=== PATIENT | male | born 1995 | race African-American/Black ===

== ENCOUNTER 2018-07-19 19:16 | Observation (INO) | payer OTHER ==
[2018-07-19] MEDS ORDERED: ALBUTEROL SO4 2.5/IPRATROPIUM 0.5 INH SOL 3 ML VIAL.NEB. NEB ONE ×3 (19:30→20:16)
[2018-07-19] MEDS ORDERED: MAGNESIUM SULF 50% (8.12 MEQ/2 ML-1 GM VIAL) ONE (19:36)
[2018-07-19] MEDS ORDERED: DEXAMETHASONE SOD PHOSPHATE 10 MG/1 ML VIAL ONE (19:36)
[2018-07-19] MEDS ORDERED: SODIUM CHLORIDE 0.9% 500 ML INFUS.BAG IV ONE (19:51)
[2018-07-19 20:03] LABS: BASO % 0.6 % (0-2.0); EOS % 0.5 % (0-4.5); HEMATOCRIT 40.6 % (35.4-49); HEMOGLOBIN 12.5 GM/dL (11.7-16.9); LYMPH % 6.7 % (8-40); MCH 23.8 pg (25.7-33.7); MCHC 30.8 g/dl (32.0-35.9); MEAN CELL VOLUME 77.3 fl (80-96); MEAN PLT VOLUME 8.8 fl (7.5-11.1); MONO % 5.2 % (3.8-10.2); PLATELET COUNT 277 K/MM3 (134-434); RBC 5.26 M/mm3 (4.00-5.60)
--- NOTE | 2018-07-19 20:14 | PDOC ---
History of Present Illness <Vannessa Foster - Last Filed: 07/19/18 22:14> - General History Source: Patient Exam Limitations: No Limitations - History of Present Illness Initial Comments: 07/19/18 22:17 23 yo M with a hx of asthma (intubated 2 times in the past, most recent 5 years ago) presents to the emergency department BIB with SOB. Per EMS, they gave him 2 grams of magnesium sulfate, 10mg of decadron, and 2x duonebs. The patient had decreased The patient is a 23 year old male with a significant past medical history of asthma (intubated 2 times 5 years ago) who presents to the emergency department via EMS from home with an asthma exacerbation prior to arrival . as per the patient mother at bedside, the patient came home from taking an exam when he went to take a nap secondary to being tired. The patient's mother states that he kept requesting blankets due to being really cold. subsequently after sleeping for a while the patient began to experience an onset of shortness of breath at around 2 pm as well as a headache. The patient reports associated episode of vomiting . As per the patient's mother , the patient received 2 duonebs enroute and began to feel slightly better. It is noted that the patient took his albuterol this morning and had last used his prednisone about 1 month ago . he denies any fever, nausea, diarrhea, constipation, chest pain, or any other complaints. <Dean Santiago - Last Filed: 07/19/18 22:27> - General Chief Complaint: Asthma Stated Complaint: ASTHMA Time Seen by Provider: 07/19/18 19:40 Past History <Vannessa Foster - Last Filed: 07/19/18 22:14> - Suicide/Smoking/Psychosocial Hx Smoking History: Never smoked Hx Alcohol Use: No Drug/Substance Use Hx: No <Dean Santiago - Last Filed: 07/19/18 22:27> - Past Medical History Allergies/Adverse Reactions: Allergies Allergy/AdvReac Type Severity Reaction Status Date / Time shellfish derived Allergy Verified 07/19/18 20:13 *Physical Exam - Vital Signs Last Vital Signs Temp Pulse Resp BP Pulse Ox 98.0 F 112 H 24 H 118/79 92 L 07/19/18 19:25 07/19/18 19:25 07/19/18 19:25 07/19/18 19:25 07/19/18 19:25 <Vannessa Foster - Last Filed: 07/19/18 22:14> - Vital Signs Last Vital Signs Temp Pulse Resp BP Pulse Ox 98.0 F 112 H 24 H 118/79 92 L 07/19/18 19:25 07/19/18 19:25 07/19/18 19:25 07/19/18 19:25 07/19/18 19:25 <Dean Santiago - Last Filed: 07/19/18 22:27> ED Treatment Course - LABORATORY CBC & Chemistry Diagram: 07/19/18 19:56 07/19/18 19:56 - ADDITIONAL ORDERS Additional order review: Laboratory Results 07/19/18 19:56 Sodium 136 Potassium 4.8 Chloride 103 Carbon Dioxide 25 Anion Gap 9 BUN 7 Creatinine 0.7 Est GFR (CKD-EPI)AfAm 155.25 Est GFR (CKD-EPI)NonAf 133.96 Random Glucose 107 H Calcium 9.4 Total Bilirubin 0.9 AST 50 H ALT 30 Alkaline Phosphatase 162 H Total Protein 7.9 Albumin 3.8 07/19/18 19:56 RBC 5.26 MCV 77.3 L MCHC 30.8 L RDW 14.0 MPV 8.8 Neutrophils % 87.0 H Lymphocytes % 6.7 L Monocytes % 5.2 Eosinophils % 0.5 Basophils % 0.6 - RADIOLOGY Radiology Studies Ordered: Category Date Time Status CHEST PA & LAT [RAD] Stat Radiology 07/19/18 19:50 Taken - Medications Given in the ED: ED Medications Discontinued Medications Generic Name Dose Route Start Last Admin Trade Name Marjorie PRN Reason Stop Dose Admin Acetaminophen 1,000 mg 07/19/18 20:15 07/19/18 21:05 Ofirmev Injection - IVPB 07/19/18 20:16 1,000 mg ONCE ONE Administration Albuterol/Ipratropium 1 amp 07/19/18 20:16 07/19/18 19:45 Duoneb - NEB 07/19/18 20:17 1 amp ONCE ONE Administration Ceftriaxone Sodium 1,000 mg/ 50 mls @ 100 mls/hr 07/19/18 20:51 07/19/18 21: 40 Dextrose IVPB 07/19/18 21:20 100 mls/hr ONCE ONE Administration Azithromycin 500 mg/ Dextrose 250 mls @ 250 mls/hr 07/19/18 20:52 07/19/18 22 :11 IVPB 07/19/18 21:51 250 mls/hr ONCE ONE Administration Sodium Chloride 1,000 ml 07/19/18 19:51 07/19/18 20:10 Normal Saline - IV 07/19/18 19:52 1,000 ml ONCE ONE Administration <Vannessa Foster - Last Filed: 07/19/18 22:14> - LABORATORY CBC & Chemistry Diagram: 07/19/18 19:56 07/19/18 19:56 - ADDITIONAL ORDERS Additional order review: 07/19/18 19:56 RBC 5.26 MCV 77.3 L MCHC 30.8 L RDW 14.0 MPV 8.8 Neutrophils % 87.0 H Lymphocytes % 6.7 L Monocytes % 5.2 Eosinophils % 0.5 Basophils % 0.6 <Dean Santiago - Last Filed: 07/19/18 22:27> *DC/Admit/Observation/Transfer - Discharge Dispostion Decision to Admit order: Yes <Vannessa Foster - Last Filed: 07/19/18 22:14> <Dean Santiago - Last Filed: 07/19/18 22:27> Diagnosis at time of Disposition: Asthma exacerbation - Discharge Dispostion Condition at time of disposition: Guarded
[2018-07-19] MEDS ORDERED: ACETAMINOPHEN 1000 MG/100 ML VIAL (NON FORMULARY) IVPB ONE (20:15)
[2018-07-19] MEDS ORDERED: ACETAMINOPHEN INJECTION 100 ML IVPB ONE (20:17)
[2018-07-19 20:32] LABS: ALBUMIN 3.8 g/dl (3.4-5.0); BILIRUBIN,TOTAL 0.9 mg/dL (0.2-1); CALCIUM 9.4 mg/dL (8.5-10.1); CREATININE 0.7 mg/dL (0.55-1.3); POTASSIUM 4.8 mmol/L (3.5-5.1); TOT PROT 7.9 g/dl (6.4-8.2)
[2018-07-19] MEDS ORDERED: CEFTRIAXONE 1,000 MG in DEXTROSE 5%-WATER - 50 ML IVPB ONE (20:51)
[2018-07-19] MEDS ORDERED: AZITHROMYCIN IVPB 500 MG in DEXTROSE 5%-WATER - 250 ML IVPB ONE (20:52)
[2018-07-19 21:14] LABS: PLATELET ESTIMATE ADEQUATE
[2018-07-19] MEDS ORDERED: AZITHROMYCIN IVPB 500 MG/250 ML BAG IVPB ONE (21:21)
[2018-07-19] MEDS ORDERED: CEFTRIAXONE 1 GM/50 ML BAG ONE (21:21)
--- NOTE | 2018-07-19 22:13 | PDOC ---
Documentation entered by Rosalia Wallace SCRIBE, acting as scribe for Vannessa Foster MD. Vannessa Foster MD: This documentation has been prepared by the opalibe, Rosalia Wallace SCRIBE, under my direction and personally reviewed by me in its entirety. I confirm that the documentation accurately reflects all work, treatment, procedures, and medical decision making performed by me. Attending Attestation - Resident Resident Name: Dean Santiago - ED Attending Attestation I have performed the following: I have examined & evaluated the patient, The case was reviewed & discussed with the resident, I agree w/resident's findings & plan - HPI HPI: 07/19/18 21:45 The patient is a 23 year old male with a significant past medical history of asthma (intubated 2 times 5 years ago) who presents to the emergency department via EMS from home with an asthma exacerbation prior to arrival . as per the patient mother at bedside, the patient came home from taking an exam when he went to take a nap secondary to being tired. The patient's mother states that he kept requesting blankets due to being really cold. subsequently after sleeping for a while the patient began to experience an onset of shortness of breath at around 2 pm as well as a headache. The patient reports associated episode of vomiting . As per the patient's mother , the patient received 2 duonebs enroute and began to feel slightly better. It is noted that the patient took his albuterol this morning and had last used his prednisone about 1 month ago . he denies any fever, nausea, diarrhea, constipation, chest pain, or any other complaints. - Physicial Exam PE: 07/19/18 21:45 GENERAL: (+)morbid obese. Awake, alert, and fully oriented, in no acute distress HEAD: No signs of trauma EYES: PERRLA, EOMI, sclera anicteric, conjunctiva clear ENT: Auricles normal inspection, hearing grossly normal, nares patent, oropharynx clear without exudates. Moist mucosa NECK: Normal ROM, supple, no lymphadenopathy, JVD, or masses LUNGS: (+)lungs tight breath sounds bilaterally, decreased air movements, patchy small expiratory wheezing. No crackles HEART: Regular rate and rhythm, normal S1 and S2, no murmurs, rubs or gallops ABDOMEN: Soft, nontender, normoactive bowel sounds. No guarding, no rebound. No masses EXTREMITIES: Normal range of motion, no edema. No clubbing or cyanosis. No cords, erythema, or tenderness NEUROLOGICAL: Cranial nerves II through XII grossly intact. Normal speech, normal gait SKIN: Warm to touch, Dry, normal turgor, no rashes or lesions noted. - Medical Decision Making 07/19/18 22:13 Pt continues to have hypoxemia on pulsox at rest and he has tight breath sounds. 07/19/18 22:13 Pt will be admitted for eval.
--- NOTE | 2018-07-19 22:13 | PN ---
Teaching Attending Note Name of Resident: Megan Nguyen ATTENDING PHYSICIAN STATEMENT I saw and evaluated the patient. I reviewed the resident's note and discussed the case with the resident. I agree with the resident's findings and plan as documented. SUBJECTIVE: Patient is a 23 year old man with a PMH of asthma (intubated 2 times 5 years ago ) and morbid obesity who presents to the ER via EMS from home with an asthma exacerbation. Patient says he woke up this morning with a runny nose. Denies smoking, vaping or use of any illicit drugs. As per the patient's mother at bedside, the patient came home from taking an exam when he went to take a nap secondary to being tired. The patient's mother states that he kept requesting for blankets due to being really cold. Subsequently after sleeping for a while the patient began to experience an onset of shortness of breath at around 2 pm as well as a headache. The patient reports associated episode of vomiting. The patient received decadron and 2 duoneb treatments enroute and began to feel slightly better. He got MgSO4 in the ER as well as azithromycin and rocephin. It is noted that the patient took his albuterol this morning and had last used his prednisone about 1 month ago. He denies any fever, nausea, diarrhea, constipation, chest pain, or any other complaints. He does not follow with any Senior Construction Manager. OBJECTIVE: Alert and morbidly obese Vital Signs Period Temp Pulse Resp BP Sys/Bean Pulse Ox Last 24 Hr 98.0 F 112 24 118/79 92 HEENT: No Jaundice, eye redness or discharge, PERRLA, EOMI. Normocephalic, atraumatic. External ears are normal and hearing is grossly intact. No nasal discharge. Neck: Supple, nontender. No palpable adenopathy or thyromegaly. No JVD Chest: Good effort. Prolonged expiration, and end expiratory wheezing. Heart: Regular. No S3, rub or murmur Abdomen: Not distended, soft, nontender and no HSM. No rebound or guarding. Normal bowel sounds. Ext: Peripheral pulses intact. No leg edema. Skin: Warm and dry. No petechiae, rash or ecchymosis. Neuro: Alert. Oriented x3. CN 2-12 grossly intact. Sensation grossly intact in all four extremities and DTR are symmetric. Psych: Appropriate mood and affect. Good insight. Abnormal Lab Results 07/19/18 07/19/18 19:56 19:56 WBC 20.0 H MCV 77.3 L MCH 23.8 L MCHC 30.8 L Absolute Neuts (auto) 17.4 H Neutrophils % 87.0 H Neutrophils % (Manual) 87.0 H Lymphocytes % 6.7 L Lymphocytes % (Manual) 3.0 L Random Glucose 107 H AST 50 H Alkaline Phosphatase 162 H ASSESSMENT AND PLAN: 1. Acute asthma exacerbation - No obvious precipitating factor. No acute abnormality on CXR. Flu swab was negative. Will continue duoned PRN, solumedrol 40 mg q 8 hours, rocephin and azithromycin. Will set him up with Pulmonary for out patient asthma care. Will get RUQ sonogram to investigate elevated LFTs and also get HbA1c. The role of his weight in the disease process discussed. 2. Morbid Obesity Counseled on the risks associated with morbid obesity. Will provide patient all the necessary assistance, counseling and positive reinforcement to facilitate weight loss. Consult wheel and axle inspector. 3. DVT prophylaxis - Lovenox 40 mg SQ q 12 hours. 4. Advance directives - Full code
[2018-07-19] MEDS ORDERED: ALBUTEROL SO4 0.083% IH SOL 2.5 MG/3 ML VIAL.NEB. NEB PRN (23:08)
--- NOTE | 2018-07-19 23:20 | HP ---
CHIEF COMPLAINT: asthma exacerbation PCP: Dr. Parrish HISTORY OF PRESENT ILLNESS: 23 y/o M with PMH asthma (intubated 2x in past; most recently 5 yrs ago), morbid obesity who presents to the ED c/o chest tightness that started this afternoon. As per pt, he had just taken a test for his GED today. After it ended in the early afternoon, he went to sleep at his home and woke up with chills. Requested more blankets from his mother. Soon after, he developed chest tightness, SOB. Tried to take two puffs of albuterol without relief. Due to his sx, his mother called an ambulance and he was subsequently brought to the ED. Received decadron, nebs en route. During this time, he also endorsed nasal congestion, but without cough or sputum production. Denies recent illnesses, sick contacts, TALAVERA, fever, chest pain or pressure or changes in urinary or bowel function. Last exacerbation was 1 month ago. He was tx at [facility] ER and d/c on prednisone taper. Peak flow baseline ranges between 500-600 per patient. Triggers include heat and dust. States his exacerbation may have been 2/2 to weather change, or possible 2/2 stress from GED. ER course was notable for: (1) Mg sulfate (2) cef, zithro (3) Recent Travel: denies PAST MEDICAL HISTORY: as above PAST SURGICAL HISTORY: denies Social History: student Smoking: denies Alcohol: denies Drugs: denies Family History: father- asthma, HTN, DM Allergies shellfish derived Allergy (Verified 07/19/18 20:13) - ANGIOEDEMA HOME MEDICATIONS: ventolin PRN pt does not take any other meds REVIEW OF SYSTEMS CONSTITUTIONAL: Absent: fever, chills, diaphoresis, generalized weakness, malaise, loss of appetite, weight change HEENT: Absent: rhinorrhea, nasal congestion, throat pain, throat swelling, difficulty swallowing, mouth swelling, ear pain, eye pain, visual changes CARDIOVASCULAR: Absent: chest pain, syncope, palpitations, irregular heart rate, lightheadedness , peripheral edema RESPIRATORY: +SOB, nasal congestion Absent: cough, shortness of breath, dyspnea with exertion, orthopnea, wheezing, stridor, hemoptysis GASTROINTESTINAL: Absent: abdominal pain, abdominal distension, nausea, vomiting, diarrhea, constipation, melena, hematochezia GENITOURINARY: Absent: dysuria, frequency, urgency, hesitancy, hematuria, flank pain, genital pain MUSCULOSKELETAL: Absent: myalgia, arthralgia, joint swelling, back pain, neck pain SKIN: Absent: rash, itching, pallor HEMATOLOGIC/IMMUNOLOGIC: Absent: easy bleeding, easy bruising, lymphadenopathy, frequent infections ENDOCRINE: Absent: unexplained weight gain, unexplained weight loss, heat intolerance, cold intolerance NEUROLOGIC: Absent: headache, focal weakness or paresthesias, dizziness, unsteady gait, seizure, mental status changes, bladder or bowel incontinence PSYCHIATRIC: Absent: anxiety, depression, suicidal or homicidal ideation, hallucinations. PHYSICAL EXAMINATION Vital Signs - 24 hr 07/19/18 19:25 Temperature 98.0 F Pulse Rate 112 H Respiratory 24 H Rate Blood Pressure 118/79 O2 Sat by Pulse 92 L Oximetry (%) GENERAL: Resting comfortably. Awake, alert, and fully oriented, in no acute distress. HEAD: Normal with no signs of trauma. EYES: Pupils equal, round and reactive to light, extraocular movements intact, sclera anicteric, conjunctiva clear. EARS, NOSE, THROAT: Ears normal, nares patent, oropharynx clear without exudates. Moist mucous membranes. NECK: Normal range of motion, supple LUNGS: +distant breath sounds d/t body habitus, CTA b/l. HEART: +tachycardic rate and rhythm, normal S1 and S2 without murmur, rub or gallop. ABDOMEN: Soft, obese, nontender, not distended, normoactive bowel sounds, no guarding, no rebound, no masses. LOWER EXTREMITIES: 2+ pt pulses, warm, well-perfused. No calf tenderness. No peripheral edema. NEUROLOGICAL: Cranial nerves II-XII intact. Normal speech. Normal gait. PSYCHIATRIC: Cooperative. Good eye contact. Appropriate mood and affect. SKIN: Warm, dry, normal turgor Laboratory Results - last 24 hr 07/19/18 07/19/18 07/19/18 19:56 19:56 21:50 WBC 20.0 H RBC 5.26 Hgb 12.5 Hct 40.6 MCV 77.3 L MCH 23.8 L MCHC 30.8 L RDW 14.0 Plt Count 277 MPV 8.8 Absolute Neuts (auto) 17.4 H Total Counted 100 Neutrophils % 87.0 H Neutrophils % (Manual) 87.0 H Lymphocytes % 6.7 L Lymphocytes % (Manual) 3.0 L Monocytes % 5.2 Monocytes % (Manual) 7 Eosinophils % 0.5 Eosinophils % (Manual) 1.0 Basophils % 0.6 Nucleated RBC % 0 Differential Comment Man diff performed Hypochromia 1+ Platelet Estimate Adequate Platelet Comment Polychromasia 1+ Sodium 136 Potassium 4.8 Chloride 103 Carbon Dioxide 25 Anion Gap 9 BUN 7 Creatinine 0.7 Est GFR (CKD-EPI)AfAm 155.25 Est GFR (CKD-EPI)NonAf 133.96 Random Glucose 107 H Calcium 9.4 Total Bilirubin 0.9 AST 50 H ALT 30 Alkaline Phosphatase 162 H Total Protein 7.9 Albumin 3.8 Influenza A (Rapid) Negative Influenza B (Rapid) Negative EKG: requested, pending CXR: without infiltrate, effusion. ASSESSMENT/PLAN: 23 y/o M with PMH asthma (intubated 2x in past; most recently 5 yrs ago), morbid obesity who presents to the ED c/o chest tightness that started this afternoon. #Asthma exacerbation -possible 2/2 stress or URI. also likely has component of obesity hypoventilation synd -c/w medrol 40 IVP q8h -duonebs RQID AMANDA, nebs PRN -will also tx for CAP w/ cef, zithro. -cont to monitor peak flow. baseline 500-600 per pt. currently 350-400 -Pulm consult: Dr. Vazquez. will need consistent outpt f/u #morbid obesity -wt loss counseling. may need bariatric sx f/u -counseling on diet, exercise -a1c: 5.1 #leukocytosis -no clear source of infection currently -possible 2/2 decadron received previously will need to determine amt time before demargination wbcs #Elevated ALP -asymptomatic -f/u abd sono #F/E/N No IVF req at this time continue to follow lytes diabetic #PPX dvt: early ambulation #Dispo med-surg obs anticipate d/c if cont to improve Visit type - Emergency Visit Emergency Visit: Yes ED Registration Date: 07/19/18 Care time: The patient presented to the Emergency Department on the above date and was hospitalized for further evaluation of their emergent condition. - New Patient This patient is new to me today: Yes Date on this admission: 07/20/18 - Critical Care Critical Care patient: No
[2018-07-20 01:34] VITALS: BMI 45.3
[2018-07-20] MEDS ORDERED: methylPREDNISolone NA SUCC 40 MG/1 ML VIAL IVPUSH SCH (02:00)
[2018-07-20 07:02] LABS: HEMATOCRIT 39.7 % (35.4-49); HEMOGLOBIN 12.4 GM/dL (11.7-16.9); MCH 24.2 pg (25.7-33.7); MCHC 31.3 g/dl (32.0-35.9); MEAN CELL VOLUME 77.3 fl (80-96); MEAN PLT VOLUME 8.4 fl (7.5-11.1); MONO % 0.5 % (3.8-10.2); NEUT % 96.5 % (42.8-82.8); PLATELET COUNT 316 K/MM3 (134-434); RBC 5.14 M/mm3 (4.00-5.60); RDW 14.2 % (11.9-15.9); WHITE BLOOD COUNT 15.6 K/mm3 (4.0-10.0)
[2018-07-20 07:31] LABS: ALBUMIN 3.4 g/dl (3.4-5.0); BILIRUBIN,TOTAL 0.4 mg/dL (0.2-1); CALCIUM 9.4 mg/dL (8.5-10.1); CREATININE 0.6 mg/dL (0.55-1.3); MAGNESIUM 2.4 mg/dL (1.8-2.4); PHOSPHOROUS 3.3 mg/dL (2.5-4.9); POTASSIUM 4.3 mmol/L (3.5-5.1); TOT PROT 7.7 g/dl (6.4-8.2)
[2018-07-20] MEDS ORDERED: ALBUTEROL SO4 2.5/IPRATROPIUM 0.5 INH SOL 3 ML VIAL.NEB. NEB SCH (08:00)
--- NOTE | 2018-07-20 09:34 | EKG ---
Test Reason : Blood Pressure : / mmHG Vent. Rate : 094 BPM Atrial Rate : 094 BPM P-R Int : 144 ms QRS Dur : 092 ms QT Int : 374 ms P-R-T Axes : 037 031 017 degrees QTc Int : 467 ms NORMAL SINUS RHYTHM NORMAL ECG NO PREVIOUS ECGS AVAILABLE Confirmed by APRIL WHEELER MD ([id number]) on 07/20/2018 9:34:33 AM Referred By: Confirmed By:APRIL WHEELER MD
--- NOTE | 2018-07-20 09:54 | HOSP ---
Subjective - Review of Symptoms HEENT: No: Head Aches, Visual Changes, Eye Pain, Ear Pain, Dysphasia, Sinus Congestion, Post Nasal Drip, Sore Throat, Other Pulmonary: No: Dyspnea, Cough, Pleuritic Chest Pain, Other Cardiovascular: No: Chest Pain, Palpitations, Orthopnea, Paroxysmal Noc. Dyspnea , Edema, Light Headedness, Other Gastrointestinal: No: Nausea, NOSYM, Vomiting, Abdominal Pain, Diarrhea, Constipation, Melena, Hematochezia, Other Musculoskeletal: No: No Symptoms, Back Pain, Crepitus, Decreased ROM, Extremity Pain, Joint Pain, Joint Swelling, Muscle Pain, Muscle Cramps, Muscle Weakness, Other Physical Examination Vital Signs: Vital Signs Temperature 97.6 F 07/20/18 06:00 Pulse Rate 82 07/20/18 06:00 Respiratory Rate 20 07/20/18 06:00 Blood Pressure 114/59 L 07/20/18 06:00 O2 Sat by Pulse Oximetry (%) 96 07/20/18 00:59 Constitutional: Yes: Well Nourished, No Distress, Calm, Obese Eyes: Yes: WNL, Conjunctiva Clear, EOM Intact HENT: Yes: WNL, Atraumatic, Normocephalic Neck: Yes: WNL, Supple, Trachea Midline Cardiovascular: Yes: WNL, Regular Rate and Rhythm, S1, S2 Respiratory: Yes: WNL, Regular, CTA Bilaterally Gastrointestinal: Yes: WNL, Normal Bowel Sounds, Soft, Abdomen, Obese Musculoskeletal: Yes: WNL Extremities: Yes: WNL Labs: CBC, BMP 07/20/18 05:20 07/20/18 05:20 Hospitalist Encounter Assessment: patient was admitted to the hospital for asthma exacerbation patient wishes to go home, he is stable not wheezing, lying comfortably in bed patient was instructed to come to the hospital if his asthma exacerbation occurs again he was instructed to take his inhaler and nebulizer treatment
[2018-07-20] MEDS ORDERED: CEFTRIAXONE 1 GM in DEXTROSE 5%-WATER - 50 ML IVPB SCH (10:00)
[2018-07-20] MEDS ORDERED: AZITHROMYCIN 250 MG TABLET PO SCH (10:00)
[2018-07-20] MEDS ORDERED: AZITHROMYCIN IVPB 500 MG/250 ML BAG IVPB SCH (10:00)
[2018-07-20 11:02] VITALS: BP 134/78; PULSE 88; TEMP 98
[2018-07-20 13:28] LABS: ANISOCYTOSIS 1+; MACROCYTOSIS 0; PLATELET ESTIMATE NORMAL
== END 2018-07-20 12:01 | disposition home or self-care (01) ==
LOC: JER 19:16 → JERBED 22:14 → J7W 07-20 00:51
PROVIDERS: ADMIT Internal Medicine; ATTEND Internal Medicine
PROC: 3E0333Z Introduction of Anti-inflammatory into Peripheral Vein, Percutaneous Approach (ICD-10-PCS; principal; 2018-07-19)
PROC: 3E033NZ Introduction of Analgesics, Hypnotics, Sedatives into Peripheral Vein, Percutaneous Approach (ICD-10-PCS; 2018-07-19)
PROC: 3E0337Z Introduction of Electrolytic and Water Balance Substance into Peripheral Vein, Percutaneous Approach (ICD-10-PCS; 2018-07-19)
PROC: 3E03329 Introduction of Other Anti-infective into Peripheral Vein, Percutaneous Approach (ICD-10-PCS; 2018-07-19)
PROC: 3E0F7GC Introduction of Other Therapeutic Substance into Respiratory Tract, Via Natural or Artificial Opening (ICD-10-PCS; 2018-07-19)
DX: J45.901 Unspecified asthma with (acute) exacerbation (principal); E66.01 Morbid (severe) obesity due to excess calories; Z68.42 Body mass index [BMI] 45.0-49.9, adult; D72.829 Elevated white blood cell count, unspecified; R74.8 Abnormal levels of other serum enzymes
CPT/HCPCS: 36415; 71046-TC-FY; 76705-TC; 80053; 83036; 83735; 84100; 85025; 87040; 87804; 93005; 93010; 94640; 96365; 96375; 99283-25; G0378; J0131

== ENCOUNTER 2019-02-07 09:16 | Inpatient (IN) | payer OTHER ==
--- NOTE | 2019-02-07 09:34 | PDOC ---
History of Present Illness - General Chief Complaint: Respiratory Stated Complaint: BACK PAIN Time Seen by Provider: 02/07/19 09:25 - History of Present Illness Initial Comments: Layton Holden is a 23yo man with a PMH of asthma who presents reporting shortness of breath for 5 days. He states that he was seen at another hospital initially and was given several breathing treatments and steroids. He reports that the steroids were supposed to be taken 4 times per day (10mg QID), but he felt that was too much and has only been taking them twice per day. He has had continued SOB. Mr Holden reports that he has tried using his home albuterol without improvement. He says that he feels like he "has the flu" because he has had back aches, productive cough, poor appetite, and general malaise. He has not had any fever over the past few days. The pt's mother, at bedside, reports that he was intubated several times as a child for his asthma. She states that she feels he has looked short of breath for several days, but she had not noticed him breathing rapidly until this morning. Past History - Past Medical History Allergies/Adverse Reactions: Allergies Allergy/AdvReac Type Severity Reaction Status Date / Time shellfish derived Allergy Verified 02/07/19 09:18 Home Medications: Ambulatory Orders Albuterol 0.083% Nebulizer Marcia [Ventolin 0.083% Nebulizer Soln -] 1 amp NEB Q4H PRN amp 07/20/18 Albuterol 0.083% Nebulizer Marcia [Ventolin 0.083%] 1 neb NEB QID PRN #125 amp 02/26 Albuterol 2.5/Ipratropium 0.5 [Duoneb -] 1 amp NEB RQID amp 07/20/18 Albuterol Sulfate Inhaler - [Ventolin Hfa Inhaler -] 1 - 2 inh PO Q4H PRN #1 inhaler 07/20/18 predniSONE [Deltasone -] 10 mg PO ASDIR #10 tablet 07/20/18 Anemia: No Asthma: Yes Cancer: No Cardiac Disorders: No CVA: No COPD: No CHF: No Dementia: No Diabetes: No GI Disorders: No Disorders: No HTN: No Hypercholesterolemia: No Liver Disease: No Seizures: No Thyroid Disease: No - Surgical History Abdominal Surgery: No Appendectomy: No Cardiac Surgery: No Cholecystectomy: No Lung Surgery: No Neurologic Surgery: No Orthopedic Surgery: No - Psycho Social/Smoking Cessation Hx Smoking History: Never smoked Have you smoked in the past 12 months: No Hx Alcohol Use: No Drug/Substance Use Hx: No Substance Use Type: None Hx Substance Use Treatment: No Review of Systems - Review of Systems Comments:: General: No fevers, no chills, no weight or appetite change, no malaise HEENT: No changes in vision, no changes in hearing, no congestion, no sore throat CV: No chest pain, no palpitations, no LE edema Pulm: See HPI GI: No nausea or vomiting, no change in bowel habits, no melena : No frequency, no urgency, no dysuria Musc: No back pain, no joint swelling, no recent injury Skin: No rash, no lesions, no erythema Endo: No excessive thirst, no heat/cold intolerance Heme: No unusual bruising or bleeding, no swollen glands Neuro: No syncope, no numbness/tingling, no focal weakness Vasc: No claudication Psych: No recent change in mood, no SI or HI *Physical Exam - Vital Signs Last Vital Signs Temp Pulse Resp BP Pulse Ox 98.6 F 117 H 22 H 110/80 90 L 02/07/19 09:22 02/07/19 09:22 02/07/19 09:22 02/07/19 09:22 02/07/19 09:22 - Physical Exam General: Comfortable, no acute distress HEENT: Atraumatic, PERRL, EOMI, MMM, voice normal, normal neck ROM Cards: Tachycardic, regular, no murmur appreciated Pulm: CTachypnic, +accessory muscle use. No wheezing or crackles appreciated but distant sounds secondary to habitus Abd: Soft, nontender, nondistended Ext: Atraumatic. No LE edema. ROM intact. WWP Skin: Normal color, no rashes or lesions Neuro: A&Ox3, CN grossly intact, normal speech, motor/sensory grossly intact and symmetric Psych: Mood appropriate to situation ED Treatment Course - LABORATORY CBC & Chemistry Diagram: 02/07/19 10:32 02/07/19 10:32 Medical Decision Making - Medical Decision Making 02/07/19 09:33 Layton Holden is a 23yo man with a PMH of asthma who presents reporting shortness of breath for 5 days despite albuterol treatment at home and a prescription for prednisone from an OSH several days ago. - Hypoxic to 90 on arrival, tachypnic, tachycardic. Accessory muscle use noted - Most likely asthma exacerbation. Difficult lung exam due to habitus. Ddx also includes pneumonia, bronchitis, influenza. No cardiac history but possible CHF or ACS - CBC, CMP, BNP, trop, EKG, CXR, influenza - Continuous nebs 02/07/19 12:12 - Labs reviewed. No concerning abnormalities - Influenza negative - CXR without focal abnormalities - Pt feeling improved. Will most likely d/c home with PMD follow up. Will refer to [facility] as pt no longer has a PMD - Recheck sats 02/07/19 12:58 - Hypoxic to 89% while ambulating, HR in 130's - CT PE ordered given hypoxia, tachycardia, tachypnea. Re-examined; no wheezing noted, breathing more comfortably. No calf tenderness or unilateral leg swelling. 02/07/19 13:32 - CTA completed, reviewed in ED. No vascular abnormalities appreciated, but read pending - Plan to admit pending CT read 02/07/19 13:40 - CT negative for acute pathology - Will give IV mag, additional albuterol nebs for continued hypoxia - Will admit for additional management. 02/07/19 14:18 - Patient reporting worsening SOB. Reassessed. Tachypnic w/ upper airway sounds but lungs CTAB. Sats 95% - Sats improved to 100% on nebulizer - Microblog sent for admission 02/07/19 15:27 - Sign out given to Dr Euceda by Dr Dailey Discussed with Dr Asim Merrill PGY2 Discharge - Discharge Information Problems reviewed: Yes Clinical Impression/Diagnosis: Asthma with acute exacerbation Qualifiers: Asthma severity: moderate Asthma persistence: persistent Qualified Code(s): J45.41 - Moderate persistent asthma with (acute) exacerbation Condition: Fair - Admission Yes - Follow up/Referral - Patient Discharge Instructions - Post Discharge Activity
[2019-02-07] MEDS ORDERED: ALBUTEROL SO4 2.5/IPRATROPIUM 0.5 INH SOL 3 ML VIAL.NEB. NEB ONE (09:43)
[2019-02-07 10:40] LABS: VENOUS PC02 44.4 mmHg (38-52); VENOUS PH 7.37 (7.31-7.41)
[2019-02-07 10:42] LABS: BASO % 0.6 % (0-2.0); HEMATOCRIT 45.2 % (35.4-49); HEMOGLOBIN 14.3 GM/dL (11.7-16.9); LYMPH % 15.6 % (8-40); MCH 24.2 pg (25.7-33.7); MCHC 31.7 g/dl (32.0-35.9); MEAN CELL VOLUME 76.4 fl (80-96); MEAN PLT VOLUME 8.3 fl (7.5-11.1); MONO % 12.8 % (3.8-10.2); PLATELET COUNT 293 K/MM3 (134-434); RBC 5.91 M/mm3 (4.00-5.60); RDW 13.9 % (11.9-15.9)
[2019-02-07 10:45] LABS: VENOUS PO2 < 49 mmHg (28-48)
[2019-02-07] MEDS: ALBUTEROL SO4 2.5/IPRATROPIUM 0.5 INH SOL 3 ML VIAL.NEB. NEB SCH (10:46)
[2019-02-07] MEDS ORDERED: methylPREDNISolone NA SUCC 125 MG/2 ML VIAL IVPUSH ONE (10:58)
[2019-02-07 11:11] LABS: ALBUMIN 3.7 g/dl (3.4-5.0); BILIRUBIN,TOTAL 0.7 mg/dL (0.2-1); BLOOD UREA NITROGEN 12.1 mg/dL (7-18); CREATININE 0.8 mg/dL (0.55-1.3); POTASSIUM 3.7 mmol/L (3.5-5.1); TOT PROT 8.4 g/dl (6.4-8.2)
[2019-02-07] MEDS ORDERED: methylPREDNISolone NA SUCC 125 MG/2 ML VIAL ONE ×2 (11:26→17:39)
--- NOTE | 2019-02-07 12:51 | PDOC ---
Documentation entered by Denise Lynne SCRIBE, acting as scribe for Eh Dailey MD. Eh Dailey MD: This documentation has been prepared by the [employer] Brenda, SCRIBE, under my direction and personally reviewed by me in its entirety. I confirm that the documentation accurately reflects all work, treatment, procedures, and medical decision making performed by me. Attending Attestation - Resident Resident Name: DesiraeMaría - ED Attending Attestation I have performed the following: I have examined & evaluated the patient, The case was reviewed & discussed with the resident, I agree w/resident's findings & plan, Exceptions are as noted - HPI HPI: 02/07/19 11:11 The patient is a 23 year old male, with a significant PMH of asthma (intubated twice in the past, most recent was 5 years ago) and morbid obesity, who presents to the emergency department with 5 days of shortness of breath. Patient reports trying to use home albuterol, to no relief. Patient also endorses back aches, productive cough and poor appetite, which he notes could be the flu. Patient also reports being seen at another hospital recently and was treated with several breathing treatments and steriods, he was supposed to be taking steroids 4 times per day, but notes that he thought it was too excessive, so has been taking twice a day. The patient denies chest pain, headache, dizziness, focal weakness/numbness. Denies fever, chills, vomiting, diarrhea and constipation. Denies any urinary symptoms. Allergies: Shellfish derived Past surgical history: none reported Social history: No tobacco use, illicit drug use. - Physicial Exam PE: 02/07/19 12:38 GENERAL: Awake, alert, and fully oriented, in mild resp distress. Morbid obesity. EYES: PERRLA, EOMI, sclera anicteric, conjunctiva clear ENT: Auricles normal inspection, hearing grossly normal, nares patent, oropharynx clear without exudates. Moist mucosa NECK: Normal ROM, supple, no lymphadenopathy, JVD, or masses LUNGS: Diminished BS throughout, likely 2/2 body habitus. No wheezes, and no crackles HEART: Tachycardic to 110, normal S1 and S2, no murmurs, rubs or gallops ABDOMEN: Soft, nontender, normoactive bowel sounds. No guarding, no rebound. No masses EXTREMITIES: Normal range of motion, no edema. No cords, erythema, or tenderness NEUROLOGICAL: Normal speech, cranial nerves intact, equal strength and sensation b/l SKIN: Warm, Dry, normal turgor, no rashes or lesions noted. - Medical Decision Making 02/07/19 12:49 23-year-old male with a significant past medical history of asthma complicated by intubation x2 presents the emergency department with 5 days of progressive shortness of breath, back pain, chills. On arrival to the emergency department patient is tachycardic, tachypneic, and hypoxic to 90% on room air. O2 sat corrects to the mid 90s on 2 L of nasal cannula. Differential includes asthma versus CHF versus PE versus ACS. Despite [id number] nebs and methylprednisolone 125 mg, patient's ambulatory sat down to 88%. Heart rate up to 130s with ambulation. As such plan to obtain CTA to rule out PE, and likely admit 02/07/19 15:03 CTA negative for PE, is also not revealing of pneumonia. Likely asthma exacerbation. Patient given magnesium and further albuterol for further treatment. Case discussed with Dr. Euceda, patient accepted for admission. Case discussed in detail with admitting physician including history, physical exam and ancillary studies. Admitting physician has assumed care for the patient, will follow all pending diagnostics and will complete the evaluation and treatment. Heart Score/ECG Review #1 02/07/19 12:48 Twelve-lead EKG was performed and reviewed by me. Sinus tachycardia, rate 107. Normal axis. No ST elevations. T wave inversion in lead III.
[2019-02-07] MEDS ORDERED: MAGNESIUM SULF 50% (8.12 MEQ/2 ML-1 GM VIAL) IVPB ONE (13:43)
[2019-02-07] MEDS ORDERED: ALBUTEROL SO4 0.083% IH SOL 2.5 MG/3 ML VIAL.NEB. NEB ONE ×3 (13:47→19:37)
[2019-02-07] MEDS: ALBUTEROL SO4 0.083% IH SOL 2.5 MG/3 ML VIAL.NEB. NEB SCH ×6 (13:51→19:30)
[2019-02-07] MEDS ORDERED: MAGNESIUM 1GM/D5W - 2 GM/200 ML IVPB IVPB ONE (14:12)
[2019-02-07] MEDS ORDERED: AZITHROMYCIN 250 MG TABLET PO SCH (15:45)
[2019-02-07] MEDS ORDERED: ALBUTEROL SO4 0.083% IH SOL 2.5 MG/3 ML VIAL.NEB. NEB PRN (15:46)
--- NOTE | 2019-02-07 15:52 | HP ---
CHIEF COMPLAINT: WHEEZING PCP:NONE HISTORY OF PRESENT ILLNESS: The patient is a 23 year old male, with a significant PMH of asthma (intubated twice in the past, most recent was 5 years ago) and morbid obesity, who presents to the emergency department with 5 days of shortness of breath. Patient reports trying to use home albuterol, to no relief. Patient also endorses back aches, productive cough and poor appetite, which he notes could be the flu. Patient also reports being seen at another hospital recently and was treated with several breathing treatments and steriods, he was supposed to be taking steroids 4 times per day, but notes that he thought it was too excessive, so has been taking twice a day. The patient denies chest pain, headache, dizziness, focal weakness/numbness. Denies fever, chills, vomiting, diarrhea and constipation. Denies any urinary symptoms. He has not seen any private doctor in the last few years and he is been on asthma treatment through the ER. ER course was notable for: (1)ER VISIT TO [facility] (2) (3) Recent Travel:NONE PAST MEDICAL HISTORY:ASTHMA BUT NO REGULAR F/U PAST SURGICAL HISTORY: No past surgical history Social History: He is not a smoker no alcohol or drug use Smoking: Alcohol: Drugs: Allergies shellfish derived Allergy (Verified 02/07/19 09:18) HOME MEDICATIONS: Home Medications Medication Instructions Recorded Albuterol 0.083% Nebulizer Marcia 1 amp NEB Q4H PRN amp 07/20/18 [Ventolin 0.083% Nebulizer Soln -] Albuterol 0.083% Nebulizer Marcia 1 neb NEB QID PRN #125 amp 07/20/18 [Ventolin 0.083%] Albuterol 2.5/Ipratropium 0.5 1 amp NEB RQID amp 07/20/18 [Duoneb -] Albuterol Sulfate Inhaler - 1 - 2 inh PO Q4H PRN #1 inhaler 07/20/18 [Ventolin Hfa Inhaler -] predniSONE [Deltasone -] 10 mg PO ASDIR #10 tablet 07/20/18 REVIEW OF SYSTEMS CONSTITUTIONAL: Absent: fever, chills, diaphoresis, generalized weakness, malaise, loss of appetite, weight change HEENT: Absent: rhinorrhea, nasal congestion, throat pain, throat swelling, difficulty swallowing, mouth swelling, ear pain, eye pain, visual changes CARDIOVASCULAR: Absent: chest pain, syncope, palpitations, irregular heart rate, lightheadedness , peripheral edema The system of for pulmonary shows he has a wheezing shortness of breath and shortness of breath on exertion GASTROINTESTINAL: Absent: abdominal pain, abdominal distension, nausea, vomiting, diarrhea, constipation, melena, hematochezia GENITOURINARY: Absent: dysuria, frequency, urgency, hesitancy, hematuria, flank pain, genital pain MUSCULOSKELETAL: Absent: myalgia, arthralgia, joint swelling, back pain, neck pain SKIN: Absent: rash, itching, pallor HEMATOLOGIC/IMMUNOLOGIC: Absent: easy bleeding, easy bruising, lymphadenopathy, frequent infections ENDOCRINE: Absent: unexplained weight gain, unexplained weight loss, heat intolerance, cold intolerance NEUROLOGIC: Absent: headache, focal weakness or paresthesias, dizziness, unsteady gait, seizure, mental status changes, bladder or bowel incontinence PSYCHIATRIC: Absent: anxiety, depression, suicidal or homicidal ideation, hallucinations. PHYSICAL EXAMINATION Vital Signs - 24 hr 02/07/19 02/07/19 02/07/19 09:22 12:15 14:39 Temperature 98.6 F Pulse Rate 117 H Pulse Rate [ 121 H 116 H Left Apical] Respiratory 22 H 25 H 20 Rate Blood Pressure 110/80 O2 Sat by Pulse 90 L 92 L 92 L Oximetry (%) GENERAL: Awake, alert, and fully oriented, in no acute distress. HEAD: Normal with no signs of trauma. EYES: Pupils equal, round and reactive to light, extraocular movements intact, sclera anicteric, conjunctiva clear. No lid lag. EARS, NOSE, THROAT: Ears normal, nares patent, oropharynx clear without exudates. Moist mucous membranes. NECK: Normal range of motion, supple without lymphadenopathy, JVD, or masses. LUNGS: Bilateral wheezing with moderate air entry HEART: Regular rate and rhythm, normal S1 and S2 without murmur, rub or gallop. ABDOMEN: Soft, nontender, not distended, normoactive bowel sounds, no guarding, no rebound, no masses. No hepatomegaly or splenomegaly. MUSCULOSKELETAL: Normal range of motion at all joints. No bony deformities or tenderness. No CVA tenderness. UPPER EXTREMITIES: 2+ pulses, warm, well-perfused. No cyanosis. No clubbing. No peripheral edema. LOWER EXTREMITIES: 2+ pulses, warm, well-perfused. No calf tenderness. No peripheral edema. NEUROLOGICAL: Cranial nerves II-XII intact. Normal speech. Normal gait. PSYCHIATRIC: Cooperative. Good eye contact. Appropriate mood and affect. SKIN: Warm, dry, normal turgor, no rashes or lesions noted, normal capillary refill. Laboratory Results - last 24 hr 02/07/19 02/07/19 02/07/19 10:32 10:32 10:32 WBC 9.0 RBC 5.91 H Hgb 14.3 Hct 45.2 MCV 76.4 L MCH 24.2 L MCHC 31.7 L RDW 13.9 Plt Count 293 MPV 8.3 Absolute Neuts (auto) 6.4 Neutrophils % 71.0 D Lymphocytes % 15.6 D Monocytes % 12.8 H D Eosinophils % 0.0 Basophils % 0.6 D Nucleated RBC % 0 VBG pH POC VBG pCO2 POC VBG pO2 VBG HCO3 VBG O2 Sat (Jacky) VBG Base Excess Sodium 135 L Potassium 3.7 Chloride 104 Carbon Dioxide 24 Anion Gap 7 L BUN 12.1 Creatinine 0.8 Est GFR (CKD-EPI)AfAm 146.96 Est GFR (CKD-EPI)NonAf 126.80 Random Glucose 100 Calcium 9.0 Total Bilirubin 0.7 AST 28 ALT 33 Alkaline Phosphatase 145 H Creatine Kinase 167 Creatine Kinase Index No Result Required. CK-MB (CK-2) < 1.0 Troponin I < 0.02 B-Natriuretic Peptide Total Protein 8.4 H Albumin 3.7 Influenza A (Rapid) Influenza B (Rapid) 02/07/19 02/07/19 02/07/19 10:32 10:32 10:32 WBC RBC Hgb Hct MCV MCH MCHC RDW Plt Count MPV Absolute Neuts (auto) Neutrophils % Lymphocytes % Monocytes % Eosinophils % Basophils % Nucleated RBC % VBG pH 7.37 POC VBG pCO2 44.4 POC VBG pO2 < 49 H VBG HCO3 24.8 VBG O2 Sat (Jacky) 71.4 VBG Base Excess -0.3 Sodium Potassium Chloride Carbon Dioxide Anion Gap BUN Creatinine Est GFR (CKD-EPI)AfAm Est GFR (CKD-EPI)NonAf Random Glucose Calcium Total Bilirubin AST ALT Alkaline Phosphatase Creatine Kinase Creatine Kinase Index CK-MB (CK-2) Troponin I B-Natriuretic Peptide 11.8 Total Protein Albumin Influenza A (Rapid) Negative Influenza B (Rapid) Negative ASSESSMENT/PLAN: he patient is a 23 year old male, with a significant PMH of asthma (intubated twice in the past, most recent was 5 years ago) and morbid obesity, who presents to the emergency department with 5 days of shortness of breath. His chest x-ray in the emergency room is normal no pneumonia he also had a CTA done in the ER which showed no sign of obstruction or no sign of dissection. Plan at this time is to start patient on oxygen 2 L nasal cannula. Start him on IV Solu-Medrol 60 mg every 6 hourly. Start him on albuterol nebulizer every 6 hourly. And also every 1 hour as needed for wheezing. Will start oral Zithromax 500 mg p.o. once a day for 3 days he will get regular diet and activity as ambulatory as tolerated we will start him on heparin prophylaxis because of DVT risk because obesity and he is not very mobile. Visit type - Emergency Visit Emergency Visit: Yes ED Registration Date: 02/07/19 Care time: The patient presented to the Emergency Department on the above date and was hospitalized for further evaluation of their emergent condition. - New Patient This patient is new to me today: Yes Date on this admission: 02/07/19 - Critical Care Critical Care patient: No
[2019-02-07] MEDS ORDERED: AZITHROMYCIN 250 MG TABLET ONE ×2 (16:37→17:39)
[2019-02-07] MEDS: methylPREDNISolone NA SUCC 40 MG/1 ML VIAL IVPUSH SCH ×2 (17:48→22:40)
[2019-02-07] MEDS ORDERED: IBUPROFEN 400 MG TABLET (FP) PO PRN (21:21)
[2019-02-08 00:17] VITALS: BMI 45.9
[2019-02-08] MEDS: methylPREDNISolone NA SUCC 40 MG/1 ML VIAL IVPUSH SCH ×2 (03:17→09:45)
[2019-02-08] MEDS: ALBUTEROL SO4 0.083% IH SOL 2.5 MG/3 ML VIAL.NEB. NEB SCH (07:51)
[2019-02-08] MEDS ORDERED: ENOXAPARIN NA (PORCINE) 40 MG/0.4 ML DISP.SYRIN SQ SCH (10:00)
[2019-02-08 13:55] VITALS: BP 141/93; PULSE 88; TEMP 98.2
--- NOTE | 2019-02-08 17:04 | DS ---
Physical Examination Vital Signs: Vital Signs Temperature 98.2 F 02/08/19 10:00 Pulse Rate 88 02/08/19 10:00 Respiratory Rate 24 H 02/08/19 10:00 Blood Pressure 141/93 02/08/19 10:00 O2 Sat by Pulse Oximetry (%) 92 L 02/08/19 09:00 Findings/Remarks: patient was not examined Labs: CBC, BMP 02/07/19 10:32 02/07/19 10:32 Discharge Summary Problems reviewed: Yes Reason For Visit: SHORTNESS OF BREATH Hospital Course: patient is a 23 y/o man with h/o asthma. who presented with SOB and was diagnosed and admitted for Asthma exacerbation . his imaging did not show PNA or PE. dialloetn came to Nurse station today , yelling and screaming, agitated , demanding to leave AMA at that moment. he did not even let MD explain risks of him leaving AMA . he signed form with RN and left . Condition: Guarded - Instructions Disposition: AGAINST MEDICAL ADVICE - Home Medications Comprehensive Discharge Medication List: Ambulatory Orders Albuterol 0.083% Nebulizer Marcia [Ventolin 0.083%] 1 neb NEB QID PRN #125 amp 02/26 Albuterol Sulfate Inhaler - [Ventolin Hfa Inhaler -] 1 - 2 inh PO Q4H PRN #1 inhaler 07/20/18 This patient is new to me today: Yes Date on this admission: 02/08/19 Emergency Visit: Yes ED Registration Date: 02/07/19 Care time: The patient presented to the Emergency Department on the above date and was hospitalized for further evaluation of their emergent condition. Critical Care patient: No - Discharge Referral Referred to [facility] Med [facility] No
--- NOTE | 2019-02-09 11:24 | EKG ---
Test Reason : Blood Pressure : / mmHG Vent. Rate : 107 BPM Atrial Rate : 107 BPM P-R Int : 132 ms QRS Dur : 084 ms QT Int : 332 ms P-R-T Axes : 073 053 037 degrees QTc Int : 443 ms SINUS TACHYCARDIA NONSPECIFIC T WAVE ABNORMALITY ABNORMAL ECG WHEN COMPARED WITH ECG OF 19-JUL-2018 23:53, NO SIGNIFICANT CHANGE WAS FOUND Confirmed by JANUSZ LAZO MD ([id number]) on 02/09/2019 11:24:03 AM Referred By: Confirmed By:JANUSZ LAZO MD
== END 2019-02-08 11:15 | disposition left against medical advice (07) | DRG 141 ==
LOC: JER 09:16 → JERBED 12:10 → J4W 21:05
PROVIDERS: ADMIT Internal Medicine; ATTEND Internal Medicine
DX: J45.41 Moderate persistent asthma with (acute) exacerbation (principal); E66.01 Morbid (severe) obesity due to excess calories; Z68.42 Body mass index [BMI] 45.0-49.9, adult; R00.0 Tachycardia, unspecified; R06.02 Shortness of breath
CPT/HCPCS: 36415; 71045-TC-FY; 71275-TC; 80053; 82550; 82553; 82803; 83880; 84484; 85025; 87804; 93005; 93010; 94640; 99285-25; Q9967